=== PATIENT | male | born 1945 | race Caucasian/White ===

== ENCOUNTER → 2016-10-10 | Outpatient (CLI) | payer MEDICARE, BC ==
[~2016-10-10] MED LIST: ADVAIR 10028 PUFF/IN IN; ADVAIR 250/5028 PUFF IN; ASPIRIN 81MG TA81 MG PO; AVODART0.5 MG PO; CHANTIX1 M1 PO; DICLOFENAC SODI75 MG PO; DITROPAN XL10 MG PO; ETODOLAC400 MG; ETODOLAC400 MG PO; FAMOTIDINE40 MG PO; GLIPIZIDE 5MG TA5 MG PO; GLUMETZA500 MG PO; HUMULIN 70100 UNITS/ SC; INSULIN GL100 UNITS1 SC; KEFLEX500 M1 PO; LANTUS INS100 UNITS/ SC; LASIX 20MG. TAB20 MG PO; METFORMIN HCL1000 MG PO; METFORMIN500 MG PO; MICARDIS HCT 121 TAB PO; MICARDIS HCT 251 TAB PO; MULTI VITAMINS1 TA1 PO; MULTI VITAMINS1 TAB PO; NITROSTAT 0.4M0.4 MG SL; NOVOLOG MI100 UNITS/ SC; NYSTATIN SU60 ML/BOT PO; OXYBUTYNIN CHLO10 MG PO; OXYBUTYNIN10 MG PO; PEPCID40 MG PO; PLAVIX 75MG TAB75 MG PO; REGLAN10 M1 PO; SEPTRA DS 800 M1 TAB PO; SIMVASTATIN80 MG PO; SPIRIVA HA1 PUFF/INH IH; SPIRIVA HA1 PUFF/INH INH; SPIRONOLACTONE25 MG NG; TUDORZA PR400 MCG/Ac IH; UROXATRAL10 MG PO; VITAMIN B COMPL1 CAP PO; VYTORIN 10 MG-21 TAB PO; ZOCOR80 MG PO
== END ==
LOC: LAB 11:14
DX: R97.20 Elevated prostate specific antigen [PSA] (principal); Z12.5 Encounter for screening for malignant neoplasm of prostate
CPT/HCPCS: G0103

== ENCOUNTER 2017-01-02 18:55 | Emergency (ER) | payer MEDICARE, BC ==
[~2017-01-02] VITALS: Ht 172.7 cm; Wt 102.1 kg
[~2017-01-02 18:55] MED LIST changes: +LEVOTHYROXINE0.05 M3 NG; +METOCLOPRAMIDE10 M2 PO
--- OUTSIDE RECORDS SUMMARY | 2017-01-02 19:06 | External Medical Summary Rpt | CCD ---
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 THY E11.65 TYPE 2 DIABETES MELLITUS WITH HYPERGLYCEM IA E78.4 OTHER HYPERLIPIDE MOISES E78.5 HYPERLIPIDE MOISES, UNSPECIFIED I20.9 ANGINA PECTORIS, UNSPECIFIED I25.10 ATHSCL HEART DISEASE OF [place] CORONARY ARTERY W/O ANG PCTRS R10.9 UNSPECIFIED ABDOMINAL PAIN R92.8 OTH ABN AND INCONCLUSIV E FINDINGS ON DX IMAGING OF BREAST R97.2 ELEVATED PROSTATE SPECIFIC ANTIGEN [PSA] Z12.5 ENCOUNTER FOR SCREENING FOR MALIGNANT NEOPLASM OF PROSTATE Allergies, Adverse Reactions, Alerts Type Allergy to substance Drug Allergy Adverse Reaction to Substance Substance Reaction Severity INGREDIENT: NO KNOWN Unknown Unknown - NO KNOWN DRUG ALLERGY NO KNOWN ALLERGIES Unknown Unknown NO KNOWN DRUG Unknown Unknown ALLERGIES Medications Na ND Rx Da Fi Fi Am Da Di Ph RX Ph St me C No te ll ll ou ys ag ar # ys at rm s nt no ma ic us Or Da si cy ia de te s n re d IN 00 10 2 No VA 00 -1 NZ 63 2- Lo 1 84 20 ng 57 13 er GM 1 Ac AD ti D- ve VA NT AG E AL SO 00 10 2 No DI 40 -1 UM 97 2- Lo 10 20 ng CH 16 13 er LO 6 RI Ac DE ti ve 0. 9% SO LN TO 63 10 1 No BR 32 -1 AM 30 1- Lo YC 30 20 ng IN 60 13 er 2 40 Ac ti MG ve /M L AL SO 00 10 1 No DI 40 -1 UM 97 1- Lo 98 20 ng CH 43 13 er LO 7 RI Ac DE ti ve 0. 9% SO YAQUELIN TI ON PI 00 10 1 No PE 40 -1 RA 93 1- Lo CI 37 20 ng L- 90 13 er TA 4 ZO Ac BA ti CT ve 4. 5 GM AL ME 51 10 0 No TF 07 -1 OR 90 1- Lo TN 17 20 ng N 22 13 er HC 0 L Ac 50 ti 0 ve MG TA BL ET 63 10 3 No PI 73 -1 RI 90 1- Lo N 43 20 ng 81 40 13 er 1 MG Ac ti CH ve EW AB LE TA BL ET NI 00 10 3 No CO 06 -1 TI 75 1- Lo NE 12 20 ng 51 13 er 14 4 Ac MG ti /2 ve 4H R PA TC H LO 00 10 3 No VE 07 -1 NO 50 1- Lo X 62 20 ng 40 04 13 er 1 MG Ac /0 ti .4 ve ML SY RI NG E NM 51 10 3 No AV 07 -1 90 1- Lo TA 78 20 ng TI 22 13 er N 0 SO Ac DI ti UM ve 40 MG TA B AD 00 10 3 No VA 17 -1 IR 30 1- Lo 69 20 ng 10 50 13 er 0- 4 50 Ac ti DI ve SK US LE 50 10 0 No VA 45 -1 QU 80 0- Lo IN 16 20 ng -D 80 13 er 5W 1 Ac 50 ti 0 ve MG /1 00 ML BA G PI 00 10 1 No PE 40 -1 RA 93 0- Lo CI 37 20 ng L- 90 13 er TA 4 ZO Ac BA ti CT ve 4. 5 GM AL TO 63 10 1 No BR 32 -1 AM 30 0- Lo YC 30 20 ng IN 60 13 er 2 40 Ac ti MG ve /M L AL SO 00 10 0 No DI 40 -1 UM 97 0- Lo 98 20 ng CH 30 13 er LO 9 RI Ac DE ti ve 0. 9% SO YAQUELIN TI ON Sa 63 10 4 No li 80 -1 ne 70 0- Lo 10 20 ng Fl 07 13 er us 5 h Ac 10 ti ML ve Sy ri ng e Mo 00 10 0 No rp 40 -1 hi 91 0- Lo ne 76 20 ng 23 13 er 2M 0 G/ Ac Ml ti ve Sy ri ng e ON 00 10 0 No DA 64 -1 NS 16 0- Lo ET 08 20 ng RO 02 13 er N 5 HC Ac L ti 4 ve MG /2 ML AL MA 00 10 0 No PA 90 -1 P 41 0- Lo 32 98 20 ng 5 26 13 er MG 1 Ac TA ti BL ve ET FS 10 4 No -1 BL 0- Lo OO 20 ng D 13 er ALLEN GA Ac R ti ve HU 00 10 4 No MA 00 -1 LO 27 0- Lo G 51 20 ng 10 01 13 er 0 7 UN Ac IT ti S/ ve ML AL Mo 00 10 4 No rp 40 -1 hi 91 0- Lo ne 76 20 ng 23 13 er 2M 0 G/ Ac Ml ti ve Sy ri ng e SP 00 10 4 No IR 59 -1 IV 70 0- Lo A 07 20 ng 18 57 13 er 5 MC Ac G ti CP ve -H AN DI LATHAM LE R FA 51 10 4 No MO 07 -1 TI 90 0- Lo DI 96 20 ng NE 62 13 er 0 20 Ac ti MG ve TA BL ET PN 00 09 0 No EU 00 -1 MO 64 5- Lo VA 94 20 ng X 30 13 er 23 0 Ac ti AL ve FI 16 09 1 No NA 72 -1 ST 90 4- Lo ER 09 20 ng ID 01 13 er E 5 5 Ac MG ti ve TA BL ET TA 51 09 1 No MS 07 -1 UL 90 4- Lo OS 29 20 ng IN 42 13 er 0 HC Ac L ti 0. ve 4 MG CA PS UL E 63 09 2 No PI 73 -1 RI 90 3- Lo N 43 20 ng 81 40 13 er 1 MG Ac ti CH ve EW AB LE TA BL ET FA 51 09 2 No MO 07 -1 TI 90 3- Lo DI 96 20 ng NE 62 13 er 0 20 Ac ti MG ve TA BL ET AD 00 09 2 No VA 17 -1 IR 30 3- Lo 69 20 ng 10 50 13 er 0- 4 50 Ac ti DI ve SK US LO 00 09 2 No VE 07 -1 NO 50 3- Lo X 62 20 ng 40 04 13 er 1 MG Ac /0 ti .4 ve ML SY RI NG E NI 00 09 2 No CO 06 -1 TI 75 3- Lo NE 12 20 ng 61 13 er 21 4 Ac MG ti /2 ve 4H R PA TC H NM 51 09 2 No AV 07 -1 90 3- Lo TA 78 20 ng TI 22 13 er N 0 SO Ac DI ti UM ve 40 MG TA B SP 00 09 2 No IR 59 -1 IV 70 3- Lo A 07 20 ng 18 57 13 er 5 MC Ac G ti CP ve -H AN DI LATHAM LE R LE 50 09 0 No VA 45 -1 QU 80 2- Lo IN 16 20 ng -D 80 13 er 5W 1 Ac 50 ti 0 ve MG /1 00 ML BA G IN 00 09 0 No VA 00 -1 NZ 63 2- Lo 1 84 20 ng 57 13 er GM 1 Ac AD ti D- ve VA NT AG E AL SO 00 09 0 No DI 40 -1 UM 97 2- Lo 10 20 ng CH 16 13 er LO 6 RI Ac DE ti ve 0. 9% SO LN Sa 63 09 3 No li 80 -1 ne 70 2- Lo 10 20 ng Fl 07 13 er us 5 h Ac 10 ti ML ve Sy ri ng e IS 00 09 0 No OV 27 -1 UE 01 2- Lo -3 31 20 ng 70 65 13 er 2 76 Ac % ti IN ve FU S CAMMIE TT LE RA 63 09 0 No D- 80 -1 SA 70 2- Lo LI 10 20 ng NE 07 13 er 5A FL Ac US ti H ve 10 ML SY RI NG E ON 00 09 0 No DA 64 -1 NS 16 2- Lo ET 08 20 ng RO 02 13 er N 5 HC Ac L ti 4 ve MG /2 ML AL MA 00 09 0 No PA 90 -1 P 41 2- Lo 32 98 20 ng 5 26 13 er MG 1 Ac TA ti BL ve ET Mo 00 09 0 No rp 40 -1 hi 91 2- Lo ne 76 20 ng 23 13 er 2M 0 G/ Ac Ml ti ve Sy ri ng e FS 09 3 No -1 BL 2- Lo OO 20 ng D 13 er ALLEN GA Ac R ti ve HU 00 09 3 No MA 00 -1 LO 27 2- Lo G 51 20 ng 10 01 13 er 0 7 UN Ac IT ti S/ ve ML AL Vital Signs 11-21-2012 14:20 Name Value Interpretat Reference Comment ion Range Body 98.6 [degF] Temperature BP 88 mm[Hg] Diastolic BP Systolic 179 mm[Hg] Heart 63 /min Rate/Pulse Respiratory 20 /min Rate 10-14-2013 11:35 Name Value Interpretat Reference Comment ion Range O2% 96 % 11-17-2012 17:18 Name Value Interpretat Reference Comment ion Range Height 172.72 cm Weight 88.452 kg Measured 11-17-2012 13:22 Name Value Interpretat Reference Comment ion Range Body 99.4 [degF] Temperature BP 77 mm[Hg] Diastolic BP Systolic 140 mm[Hg] Heart 101 /min Rate/Pulse O2% 94 % Respiratory 20 /min Rate Weight 0 [oz_av] Measured 10-23-2012 11:33 Name Value Interpretat Reference Comment ion Range Body 98.4 [degF] Temperature BP 70 mm[Hg] Diastolic BP Systolic 161 mm[Hg] Heart 78 /min Rate/Pulse Respiratory 18 /min Rate 10-23-2012 08:00 Name Value Interpretat Reference Comment ion Range O2% 95 % 10-20-2012 20:30 Name Value Interpretat Reference Comment ion Range Height 172.72 cm Weight 91.173 kg Measured 10-20-2012 13:04 Name Value Interpretat Reference Comment ion Range Body 98.9 [degF] Temperature BP 68 mm[Hg] Diastolic BP Systolic 152 mm[Hg] Heart 99 /min Rate/Pulse O2% 97 % Respiratory 20 /min Rate Weight 0 [oz_av] Measured Results Labs Lab Lab Date Result Refere Interp Status Commen Order Detail nces retati t Range on Glucose dC Glucomtr-[facility] (11-21-2012 11:49) Glucose 169 70-110 complet BldC 013 mg/dl ed Glucomt 11:49 r-[facility] Glucose [facility] Glucomtr-[facility] (11-21-2012 06:37) Glucose 146 70-110 complet BldC 013 mg/dl ed Glucomt 06:37 r-[facility] BASIC METABOLIC PANEL (11-21-2012 06:25) Glucose 137 74-106 complet 013 mg/dL ed Bld-mCn 06:25 c BUN 8 mg/dL 7-18 complet Bld-mCn 013 ed c 06:25 Creat 1.0 0.8-1.3 complet SerPl-m 013 mg/dL ed Cnc 06:25 ESTIMAT 92 50-200 complet ED 013 ML/MIN ed CREATIN 06:25 INE CLEARAN CE GFR 10-14-2 75 Greater complet (ESTIMA 013 ML/MIN than ed ESTER) 06:25 60 Sodium 10-14-2 139 136-145 complet SerPl-s 013 mmoL/L ed Cnc 06:25 Potassi 10-14-2 3.9 3.5-5.1 complet um 013 mmoL/L ed SerPl-s 06:25 Cnc Chlorid -14-2 104 98-107 complet e 013 mmoL/L ed SerPl-s 06:25 Cnc CO2 -14-2 27 21.0-32 complet SerPl-s 013 mmoL/L .0 ed Cnc 06:25 Calcium 10-14-2 8.6 8.5-10. complet 013 mg/dL 1 ed SerPl-m 06:25 Cnc CBC with AUTO DIFF (11-21-2012 06:25) WBC # 10-14-2 6.4 4.8-10. complet Bld 013 K/MM3 8 ed Auto 06:25 RBC # 10-14-2 3.79 4.6-6.2 complet Bld 013 M/mm3 ed Auto 06:25 Hgb 10-14-2 11.3 14.1-18 complet Bld-mCn 013 g/dL .0 ed c 06:25 Hct Fr -14-2 35.2 % 42.0-52 complet Bld 013 .0 ed 06:25 MCV RBC 10-14-2 93.0 fl 82.2-97 complet 013 .8 ed 06:25 MCH RBC -14-2 29.7 pg 27-31.2 complet Qn 013 ed Auto 06:25 MEAN 10-14-2 32.0 31.8-35 complet CORPUSC 013 g/dl .4 ed ULAR 06:25 HGB CONC RDW RBC 10-14-2 15.5 % 11.5-17 complet Auto 013 .5 ed 06:25 Platele 10-14-2 247 142-424 complet t Bld 013 K/mm3 ed Ql 06:25 Manual MEAN 10-14-2 7.9 fl 7.4-10. complet PLATELE 013 4 ed T 06:25 VOLUME Granulo -14-2 65.1 % 37.0-80 complet cytes 013 .0 ed Fr Bld 06:25 Auto LYMPH % 10-14-2 25.2 % 10-50 complet 013 ed 06:25 Monocyt 10-14-2 5.9 % 1.7-9.3 complet es Fr 013 ed Bld 06:25 Auto Eosinop 10-14-2 3.4 % 0.1-12. complet hil Fr 013 0 ed Bld 06:25 Auto Basophi 10-14-2 0.4 % 0.1-2.0 complet ls Fr 013 ed Bld 06:25 Auto Granulo 10-14-2 4.2 1.3-8.0 complet cytes # 013 K/mm3 ed Bld 06:25 Auto Lymphoc 10-14-2 1.6 0.7-4.5 complet ytes Fr 013 K/mm3 ed Bld 06:25 Auto Monocyt 10-14-2 0.4 0.1-1.0 complet es # 013 K/mm3 ed Bld 06:25 Auto Eosinop 10-14-2 0.2 0.0-0.4 complet hil # 013 K/mm3 ed Bld 06:25 Auto Basophi 10-14-2 0.0 0-0.2 complet ls # 013 K/MM3 ed Bld 06:25 Auto Glucose dC Glucomtr-[facility] (11-20-2012 19:59) Glucose 11-20-2 228 70-110 complet BldC 013 mg/dl ed Glucomt 19:59 r-[facility] Glucose dC Glucomtr-[facility] (11-20-2012 16:36) Glucose 10-2 139 70-110 complet BldC 013 mg/dl ed Glucomt 16:36 r-[facility] Glucose BldC [facility]comtr-[facility] (11-20-2012 11:30) Glucose 10-2 152 70-110 complet BldC 013 mg/dl ed Glucomt 11:30 r-[facility] Glucose BldC Glucomtr-[facility] (11-20-2012 06:39) Glucose 10-2 165 70-110 complet BldC 013 mg/dl ed Glucomt 06:39 r-[facility] BASIC METABOLIC PANEL (11-20-2012 06:20) Glucose 11-20-2 169 74-106 complet 013 mg/dL ed Bld-mCn 06:20 c BUN 11-20-2 8 mg/dL 7-18 complet Bld-mCn 013 ed c 06:20 Creat 10-13-2 1.1 0.8-1.3 complet SerPl-m 013 mg/dL ed Cnc 06:20 ESTIMAT --2 84 50-200 complet ED 013 ML/MIN ed CREATIN 06:20 INE CLEARAN CE GFR 11-20-2 67 Greater complet (ESTIMA 013 ML/MIN than ed ESTER) 06:20 60 Sodium 11-20-2 139 136-145 complet SerPl-s 013 mmoL/L ed Cnc 06:20 Potassi 11-20-2 3.7 3.5-5.1 complet um 013 mmoL/L ed SerPl-s 06:20 Cnc Chlorid 11-20-2 104 98-107 complet e 013 mmoL/L ed SerPl-s 06:20 Cnc CO2 11-20-2 28 21.0-32 complet SerPl-s 013 mmoL/L .0 ed Cnc 06:20 Calcium -13-2 8.5 8.5-10. complet 013 mg/dL 1 ed SerPl-m 06:20 Cnc CBC with AUTO DIFF (11-20-2012 06:20) WBC # 10-13-2 6.6 4.8-10. complet Bld 013 K/MM3 8 ed Auto 06:20 RBC # 10-13-2 3.58 4.6-6.2 complet Bld 013 M/mm3 ed Auto 06:20 Hgb 10-13-2 10.8 14.1-18 complet Bld-mCn 013 g/dL .0 ed c 06:20 Hct Fr 10-2 33.1 % 42.0-52 complet Bld 013 .0 ed 06:20 MCV RBC 10-13-2 92.4 fl 82.2-97 complet 013 .8 ed 06:20 MCH RBC 10-13-2 30.1 pg 27-31.2 complet Qn 013 ed Auto 06:20 MEAN 10-13-2 32.6 31.8-35 complet CORPUSC 013 g/dl .4 ed ULAR 06:20 HGB CONC RDW RBC 10-13-2 15.6 % 11.5-17 complet Auto 013 .5 ed 06:20 Platele 10-13-2 208 142-424 complet t Bld 013 K/mm3 ed Ql 06:20 Manual MEAN 10-13-2 7.8 fl 7.4-10. complet PLATELE 013 4 ed T 06:20 VOLUME Granulo 10-13-2 68.8 % 37.0-80 complet cytes 013 .0 ed Fr Bld 06:20 Auto LYMPH % 10-13-2 23.0 % 10-50 complet 013 ed 06:20 Monocyt 10-13-2 6.0 % 1.7-9.3 complet es Fr 013 ed Bld 06:20 Auto Eosinop 10-13-2 1.6 % 0.1-12. complet hil Fr 013 0 ed Bld 06:20 Auto Basophi 10-13-2 0.6 % 0.1-2.0 complet ls Fr 013 ed Bld 06:20 Auto Granulo 10-13-2 4.5 1.3-8.0 complet cytes # 013 K/mm3 ed Bld 06:20 Auto Lymphoc 10-13-2 1.5 0.7-4.5 complet ytes Fr 013 K/mm3 ed Bld 06:20 Auto Monocyt 10-13-2 0.4 0.1-1.0 complet es # 013 K/mm3 ed Bld 06:20 Auto Eosinop 10-13-2 0.1 0.0-0.4 complet hil # 013 K/mm3 ed Bld 06:20 Auto Basophi 10-13-2 0.0 0-0.2 complet ls # 013 K/MM3 ed Bld 06:20 Auto Glucose BldC Glucomtr-[facility] (11-20-2012 03:06) Glucose 11-20-2 143 70-110 complet BldC 013 mg/dl ed Glucomt 03:06 r-nc Glucose BldC Glucomtr-nc (11-19-2012 21:56) Glucose 10-2 172 70-110 complet BldC 013 mg/dl ed Glucomt 21:56 r-nc Glucose BldC Glucomtr-[facility] (11-19-2012 17:09) Glucose 10-2 140 70-110 complet BldC 013 mg/dl ed Glucomt 17:09 r-[facility] Glucose BldC [facility]tr-[facility] (11-19-2012 11:45) Glucose 10-2 138 70-110 complet BldC 013 mg/dl ed Glucomt 11:45 r-[facility] Tobramycin Ran SerPl-mCnc (11-19-2012 10:00) Tobramy 1.2 complet maninder Ran 013 ug/mL ed 10:00 SerPl-m Cnc Glucose BldC Glucomtr-[facility] (11-19-2012 06:51) Glucose 120 70-110 complet BldC 013 mg/dl ed Glucomt 06:51 r-[facility] COMPREHENSIVE METABOLIC PANEL (11-19-2012 02:05) Glucose 148 74-106 complet 013 mg/dL ed Bld-mCn 02:05 c BUN 11 7-18 complet Bld-mCn 013 mg/dL ed c 02:05 Creat 1.4 0.8-1.3 complet SerPl-m 013 mg/dL ed Cnc 02:05 ESTIMAT 66 50-200 complet ED 013 ML/MIN ed CREATIN 02:05 INE CLEARAN CE GFR 51 Greater complet (ESTIMA 013 ML/MIN than ed ESTER) 02:05 60 Sodium 135 136-145 complet SerPl-s 013 mmoL/L ed Cnc 02:05 Potassi 4.0 3.5-5.1 complet um 013 mmoL/L ed SerPl-s 02:05 Cnc Chlorid 101 98-107 complet e 013 mmoL/L ed SerPl-s 02:05 Cnc CO2 26 21.0-32 complet SerPl-s 013 mmoL/L .0 ed Cnc 02:05 Calcium 8.1 8.5-10. complet 013 mg/dL 1 ed SerPl-m 02:05 Cnc Prot 6.7 6.4-8.2 complet SerPl-m 013 gm/dL ed Cnc 02:05 Albumin 2.3 3.4-5.0 complet 013 gm/dL ed SerPl-m 02:05 Cnc GLOBULI 4.4 1.3-3.2 complet N 013 gm/dL ed 02:05 ALB/GT 0.5 UNK 1.1-1.8 complet B RATIO 013 ed 02:05 Bilirub 10-12-2 0.4 0.2-1.0 complet 013 mg/dL ed SerPl-m 02:05 Cnc AST 11-19- 36 U/L 15-37 complet SerPl-c 013 ed Cnc 02:05 ALT 11-19- 52 U/L 30-65 complet SerPl-c 013 ed Cnc 02:05 ALP 120 U/L 50-136 complet SerPl-c 013 ed Cnc 02:05 Tobramycin Ran SerPl-mCnc (11-19-2012 02:05) Tobramy 11-19-2 5.5 complet maninder Ran 013 ug/mL ed 02:05 SerPl-m Cnc CBC with AUTO DIFF (11-19-2012 02:05) WBC # 10-12-2 10.6 4.8-10. complet Bld 013 K/MM3 8 ed Auto 02:05 RBC # 11-19-2 3.67 4.6-6.2 complet Bld 013 M/mm3 ed Auto 02:05 Hgb 11-19-2 11.1 14.1-18 complet Bld-mCn 013 g/dL .0 ed c 02:05 Hct Fr 33.6 % 42.0-52 complet Bld 013 .0 ed 02:05 MCV RBC 11-19- 91.6 fl 82.2-97 complet 013 .8 ed 02:05 MCH RBC 11-19-2 30.4 pg 27-31.2 complet Qn 013 ed Auto 02:05 MEAN 11-19- 33.2 31.8-35 complet CORPUSC 013 g/dl .4 ed ULAR 02:05 HGB CONC RDW RBC 11-19-2 15.7 % 11.5-17 complet Auto 013 .5 ed 02:05 Platele --2 204 142-424 complet t Bld 013 K/mm3 ed Ql 02:05 Manual MEAN 11-19-2 7.9 fl 7.4-10. complet PLATELE 013 4 ed T 02:05 VOLUME Granulo 11-19-2 83.0 % 37.0-80 complet cytes 013 .0 ed Fr Bld 02:05 Auto LYMPH % -12-2 11.6 % 10-50 complet 013 ed 02:05 Monocyt 10-2 4.8 % 1.7-9.3 complet es Fr 013 ed Bld 02:05 Auto Eosinop 10-12-2 0.2 % 0.1-12. complet hil Fr 013 0 ed Bld 02:05 Auto Basophi 10-12-2 0.3 % 0.1-2.0 complet ls Fr 013 ed Bld 02:05 Auto Granulo 10-12-2 8.8 1.3-8.0 complet cytes # 013 K/mm3 ed Bld 02:05 Auto Lymphoc 10-12-2 1.2 0.7-4.5 complet ytes Fr 013 K/mm3 ed Bld 02:05 Auto Monocyt 10-12-2 0.5 0.1-1.0 complet es # 013 K/mm3 ed Bld 02:05 Auto Eosinop 10-12-2 0.0 0.0-0.4 complet hil # 013 K/mm3 ed Bld 02:05 Auto Basophi 10-12-2 0.0 0-0.2 complet ls # 013 K/MM3 ed Bld 02:05 Auto Glucose BldC Glucomtr-mCnc (11-18-2012 20:10) Glucose 10-11-2 134 70-110 complet BldC 013 mg/dl ed Glucomt 20:10 r-nc Glucose BldC Glucomtr-mCnc (11-18-2012 16:52) Glucose 10-2 179 70-110 complet BldC 013 mg/dl ed Glucomt 16:52 r-nc Glucose BldC Glucomtr-mCnc (11-18-2012 11:27) Glucose 10-11-2 157 70-110 complet BldC 013 mg/dl ed Glucomt 11:27 r-nc BASIC METABOLIC PANEL (11-18-2012 06:45) Glucose -11-2 148 74-106 complet 013 mg/dL ed Bld-mCn 06:45 c BUN -11-2 13 7-18 complet Bld-mCn 013 mg/dL ed c 06:45 Creat -11-2 1.8 0.8-1.3 complet SerPl-m 013 mg/dL ed Cnc 06:45 ESTIMAT 11-18-2 51 50-200 complet ED 013 ML/MIN ed CREATIN 06:45 INE CLEARAN CE GFR 11-18-2 38 Greater complet (ESTIMA 013 ML/MIN than ed ESTER) 06:45 60 Sodium 10-11-2 135 136-145 complet SerPl-s 013 mmoL/L ed Cnc 06:45 Potassi 10-11-2 4.8 3.5-5.1 complet um 013 mmoL/L ed SerPl-s 06:45 Cnc Chlorid 10-11-2 100 98-107 complet e 013 mmoL/L ed SerPl-s 06:45 Cnc CO2 10-11-2 28 21.0-32 complet SerPl-s 013 mmoL/L .0 ed Cnc 06:45 Calcium 10-11-2 8.8 8.5-10. complet 013 mg/dL 1 ed SerPl-m 06:45 Cnc Tobramycin Ran SerPl-mCnc (11-18-2012 06:45) Tobramy 10-11-2 2.4 complet maninder Ran 013 ug/mL ed 06:45 SerPl-m Cnc CBC with AUTO DIFF (11-18-2012 06:45) WBC # 10-11-2 15.6 4.8-10. complet Bld 013 K/MM3 8 ed Auto 06:45 RBC # 10-11-2 4.14 4.6-6.2 complet Bld 013 M/mm3 ed Auto 06:45 Hgb 10-11-2 12.6 14.1-18 complet Bld-mCn 013 g/dL .0 ed c 06:45 Hct Fr 10-11-2 38.3 % 42.0-52 complet Bld 013 .0 ed 06:45 MCV RBC 10-11-2 92.6 fl 82.2-97 complet 013 .8 ed 06:45 MCH RBC 10-11-2 30.4 pg 27-31.2 complet Qn 013 ed Auto 06:45 MEAN 10-11-2 32.8 31.8-35 complet CORPUSC 013 g/dl .4 ed ULAR 06:45 HGB CONC RDW RBC 10-11-2 15.9 % 11.5-17 complet Auto 013 .5 ed 06:45 Platele 10-11-2 221 142-424 complet t Bld 013 K/mm3 ed Ql 06:45 Manual MEAN 10-11-2 7.8 fl 7.4-10. complet PLATELE 013 4 ed T 06:45 VOLUME Granulo 10-11-2 83.7 % 37.0-80 complet cytes 013 .0 ed Fr Bld 06:45 Auto LYMPH % 10-11-2 10.7 % 10-50 complet 013 ed 06:45 Monocyt 10-11-2 4.6 % 1.7-9.3 complet es Fr 013 ed Bld 06:45 Auto Eosinop 10-11-2 0.7 % 0.1-12. complet hil Fr 013 0 ed Bld 06:45 Auto Basophi 10-11-2 0.3 % 0.1-2.0 complet ls Fr 013 ed Bld 06:45 Auto Granulo 10-11-2 13.0 1.3-8.0 complet cytes # 013 K/mm3 ed Bld 06:45 Auto Lymphoc 10-11-2 1.7 0.7-4.5 complet ytes Fr 013 K/mm3 ed Bld 06:45 Auto Monocyt 10-11-2 0.7 0.1-1.0 complet es # 013 K/mm3 ed Bld 06:45 Auto Eosinop 10-11-2 0.1 0.0-0.4 complet hil # 013 K/mm3 ed Bld 06:45 Auto Basophi 10-11-2 0.1 0-0.2 complet ls # 013 K/MM3 ed Bld 06:45 Auto Glucose BldC [facility]tr[facility] (11-18-2012 06:21) Glucose 135 70-110 complet BldC 013 mg/dl ed [facility] Tob[facility] (11-17-2012 22:50) Tobramy 10-10-2 11.8 4.0-10. complet maninder 013 uG/mL 0 ed Peak 22:50 SerPl-[facility] Glucose BldC [facility]comtr-[facility] (11-17-2012 20:02) Glucose 144 70-110 complet BldC 013 mg/dl ed [facility]t [facility] Glucose BldC [facility] (11-17-2012 17:08) Glucose 11-17- 127 70-110 complet BldC 013 mg/dl ed [facility] 17:08 [facility] COMPREHENSIVE METABOLIC PANEL (11-17-2012 14:10) Glucose 11-17- 141 74-106 complet 013 mg/dL ed Bld-n 14:10 c BUN 10-2 10 7-18 complet Bld-mCn 013 mg/dL ed c 14:10 Creat 10-2 1.6 0.8-1.3 complet SerPl-m 013 mg/dL ed Cnc 14:10 ESTIMAT 10-2 59 50-200 complet ED 013 ML/MIN ed CREATIN 14:10 INE CLEARAN CE GFR 11-17-2 44 Greater complet (ESTIMA 013 ML/MIN than ed ESTER) 14:10 60 Sodium 10-2 130 136-145 complet SerPl-s 013 mmoL/L ed Cnc 14:10 Potassi 10- 4.7 3.5-5.1 complet um 013 mmoL/L ed SerPl-s 14:10 Cnc Chlorid 11-17- 98 98-107 complet e 013 mmoL/L ed SerPl-s 14:10 Cnc CO2 11-17- 28 21.0-32 complet SerPl-s 013 mmoL/L .0 ed Cnc 14:10 Calcium 11-17-2 8.8 8.5-10. complet 013 mg/dL 1 ed SerPl-m 14:10 Cnc Prot 10-2 8.2 6.4-8.2 complet SerPl-m 013 gm/dL ed Cnc 14:10 Albumin 10-2 3.2 3.4-5.0 complet 013 gm/dL ed SerPl-m 14:10 Cnc Globuli 11-17-2 5.0 1.3-3.2 complet n 013 gm/dL ed Ser-mCn 14:10 c Albumin 11-17-2 0.6 UNK 1.1-1.8 complet /Glob 013 ed SerPl-m 14:10 Rto Bilirub 10-2 0.5 0.2-1.0 complet 013 mg/dL ed SerPl-m 14:10 Cnc AST 10-2 14 U/L 15-37 complet SerPl-c 013 ed Cnc 14:10 ALT 10-2 30 U/L 30-65 complet SerPl-c 013 ed Cnc 14:10 ALP 11-17- 130 U/L 50-136 complet SerPl-c 013 ed Cnc 14:10 C-REACTIVE PROTEIN (11-17-2012 14:10) C-REACT 10-10-2 12.6 0.0-0.9 complet SAMANTHA 013 MG/DL ed PROTEIN 14:10 CBC with AUTO DIFF (11-17-2012 14:10) WBC # 10-10-2 15.1 4.8-10. complet Bld 013 K/MM3 8 ed Auto 14:10 RBC # 10-10-2 4.57 4.6-6.2 complet Bld 013 M/mm3 ed Auto 14:10 Hgb 10-10-2 13.9 14.1-18 complet Bld-mCn 013 g/dL .0 ed c 14:10 Hct Fr 10-10-2 41.9 % 42.0-52 complet Bld 013 .0 ed 14:10 MCV RBC 10-10-2 91.7 fl 82.2-97 complet 013 .8 ed 14:10 MCH RBC 10-10-2 30.4 pg 27-31.2 complet Qn 013 ed Auto 14:10 MEAN 10-10-2 33.2 31.8-35 complet CORPUSC 013 g/dl .4 ed ULAR 14:10 HGB CONC RDW RBC 10-10-2 15.8 % 11.5-17 complet Auto 013 .5 ed 14:10 Platele 10-10-2 264 142-424 complet t Bld 013 K/mm3 ed Ql 14:10 Manual MEAN 10-10-2 7.7 fl 7.4-10. complet PLATELE 013 4 ed T 14:10 VOLUME Granulo 10-10-2 84.7 % 37.0-80 complet cytes 013 .0 ed Fr Bld 14:10 Auto LYMPH % 10-10-2 9.8 % 10-50 complet 013 ed 14:10 Monocyt 10-10-2 4.8 % 1.7-9.3 complet es Fr 013 ed Bld 14:10 Auto Eosinop 10-10-2 0.3 % 0.1-12. complet hil Fr 013 0 ed Bld 14:10 Auto Basophi 10-10-2 0.4 % 0.1-2.0 complet ls Fr 013 ed Bld 14:10 Auto Granulo 10-10-2 12.8 1.3-8.0 complet cytes # 013 K/mm3 ed Bld 14:10 Auto Lymphoc 10-10-2 1.5 0.7-4.5 complet ytes Fr 013 K/mm3 ed Bld 14:10 Auto Monocyt 10-10-2 0.7 0.1-1.0 complet es # 013 K/mm3 ed Bld 14:10 Auto Eosinop 10-10-2 0.1 0.0-0.4 complet hil # 013 K/mm3 ed Bld 14:10 Auto Basophi 10-10-2 0.1 0-0.2 complet ls # 013 K/MM3 ed Bld 14:10 Auto URINALYSIS/COMPLETE (11-17-2012 13:50) URINE 10-10-2 YELLOW YELLOW complet COLOR 013 ed 13:50 URINE 10-10-2 CLOUDY CLEAR complet APPEARA 013 ed NCE 13:50 URINE 10-10-2 NEGATIV NEG complet GLUCOSE 013 E ed - 13:50 DIPSTIC K URINE 10-10-2 2+ NEG complet BILIRUB 013 ed IN - 13:50 DIPSTIC K URINE 10-10-2 NEGATIV NEG complet KETONE 013 E mg/dL ed 13:50 URINE 10-10-2 1.025 1.005-1 complet SPECIFI 013 UNK .030 ed C 13:50 GRAVITY URINE 10-10-2 3+ NEG complet BLOOD 013 ed 13:50 URINE 10-10-2 6.0 UNK 5.0-8.5 complet PH 013 ed 13:50 URINE 10-10-2 2+ NEG complet PROTEIN 013 mg/dL ed - 13:50 DIPSTIC K URINE 10-10-2 0.2 NEG complet UROBILI 013 E.U./dL ed NOGEN - 13:50 DIPSTIC K URINE 10-10-2 POSITIV NEG complet NITRATE 013 E ed - 13:50 DIPSTIC K URINE 10-10-2 2+ NEG complet LEUK 013 ed ESTERAS 13:50 E URINE 10-10-2 TNTC 0 complet RBC 013 rbc/hpf ed 13:50 URINE 10-10-2 TNTC O complet WBC 013 wbc/hpf ed 13:50 URINE 10-10-2 4+ O complet BACTERI 013 ed A 13:50 Glucose BldC [facility] (10-23-2012 06:24) Glucose 156 70-110 complet BldC 013 mg/dl ed Glucomt 06:24 r-mCnc Glucose BldC [facility] (10-22-2012 20:15) Glucose 205 70-110 complet BldC 013 mg/dl ed Glucomt 20:15 r-mCnc Glucose dC [facility] (10-22-2012 16:39) Glucose 193 70-110 complet BldC 013 mg/dl ed Glucomt 16:39 r-mCnc PROSTATE-SPECIFIC ANTIGEN F/U (10-22-2012 11:46) PROSTAT 51.2 0.0-4.0 complet E-SPECI 013 ng/mL ed FIC 11:46 ANTIGEN F/U Glucose dC [facility] (10-22-2012 11:41) Glucose 112 70-110 complet BldC 013 mg/dl ed Glucomt 11:41 r-mCnc Glucose [facility] (10-22-2012 06:26) Glucose 127 70-110 complet BldC 013 mg/dl ed Glucomt 06:26 r-mCnc Glucose [facility] (10-21-2012 20:36) Glucose 171 70-110 complet BldC 013 mg/dl ed Glucomt 20:36 r-mCnc Glucose dC [facility] (10-21-2012 16:57) Glucose 128 70-110 complet BldC 013 mg/dl ed Glucomt 16:57 r-mCnc Glucose [facility] (10-21-2012 11:50) Glucose 99 70-110 complet BldC 013 mg/dl ed Glucomt 11:50 r-mCnc Glucose dC [facility] (10-21-2012 06:32) Glucose 126 70-110 complet BldC 013 mg/dl ed Glucomt 06:32 r-mCnc Glucose dC [facility] (10-21-2012 01:43) Glucose 97 70-110 complet BldC 013 mg/dl ed Glucomt 01:43 r-mCnc Glucose dC [facility] (10-20-2012 22:56) Glucose 204 70-110 complet BldC 013 mg/dl ed Glucomt 22:56 r-mCnc STREP SCREEN (RAPID) (10-20-2012 15:45) STREP NEGATIV complet SCREEN 013 E ed (RAPID) 15:45 OCCULT BLOOD (10-20-2012 15:30) Hemocul NEGATIV NEG complet t sp1 013 E ed Stl Ql 15:30 COMPREHENSIVE METABOLIC PANEL (10-20-2012 14:20) Glucose 190 74-106 complet 013 mg/dL ed Bld-mCn 14:20 c BUN 8 mg/dL 7-18 complet Bld-mCn 013 ed c 14:20 Creat 1.2 0.8-1.3 complet SerPl-m 013 mg/dL ed Cnc 14:20 ESTIMAT 82 50-200 complet ED 013 ML/MIN ed CREATIN 14:20 INE CLEARAN CE GFR 61 Greater complet (ESTIMA 013 ML/MIN than ed ESTER) 14:20 60 Sodium 139 136-145 complet SerPl-s 013 mmoL/L ed Cnc 14:20 Potassi 3.6 3.5-5.1 complet um 013 mmoL/L ed SerPl-s 14:20 Cnc Chlorid 102 98-107 complet e 013 mmoL/L ed SerPl-s 14:20 Cnc CO2 30 21.0-32 complet SerPl-s 013 mmoL/L .0 ed Cnc 14:20 Calcium 9.3 8.5-10. complet 013 mg/dL 1 ed SerPl-m 14:20 Cnc Prot 8.2 6.4-8.2 complet SerPl-m 013 gm/dL ed Cnc 14:20 Albumin 3.4 3.4-5.0 complet 013 gm/dL ed SerPl-m 14:20 Cnc Globuli 4.8 1.3-3.2 complet n 013 gm/dL ed Ser-mCn 14:20 c Albumin 0.7 UNK 1.1-1.8 complet /Glob 013 ed SerPl-m 14:20 Rto Bilirub 0.8 0.2-1.0 complet 013 mg/dL ed SerPl-m 14:20 Cnc AST 22 U/L 15-37 complet SerPl-c 013 ed Cnc 14:20 ALT 46 U/L 30-65 complet SerPl-c 013 ed Cnc 14:20 ALP 114 U/L 50-136 complet SerPl-c 013 ed Cnc 14:20 Amylase SerPl-cCnc (10-20-2012 14:20) Amylase 24 U/L 25-115 complet 013 ed SerPl-c 14:20 Cnc LIPASE (10-20-2012 14:20) LIPASE 95 U/L 73-393 complet 013 ed 14:20 CBC with AUTO DIFF (10-20-2012 14:20) WBC # 18.4 4.8-10. complet Bld 013 K/MM3 8 ed Auto 14:20 RBC # 4.98 4.6-6.2 complet Bld 013 M/mm3 ed Auto 14:20 Hgb 15.6 14.1-18 complet Bld-mCn 013 g/dL .0 ed c 14:20 Hct Fr 47.0 % 42.0-52 complet Bld 013 .0 ed 14:20 MCV RBC 94.3 fl 82.2-97 complet 013 .8 ed 14:20 MCH RBC 31.2 pg 27-31.2 complet Qn 013 ed Auto 14:20 MEAN 33.1 31.8-35 complet CORPUSC 013 g/dl .4 ed ULAR 14:20 HGB CONC RDW RBC 15.4 % 11.5-17 complet Auto 013 .5 ed 14:20 Platele 212 142-424 complet t Bld 013 K/mm3 ed Ql 14:20 Manual MEAN 8.8 fl 7.4-10. complet PLATELE 013 4 ed T 14:20 VOLUME Granulo 90.9 % 37.0-80 complet cytes 013 .0 ed Fr Bld 14:20 Auto LYMPH % 09-12-2 5.7 % 10-50 complet 013 ed 14:20 Monocyt 09-12-2 2.1 % 1.7-9.3 complet es Fr 013 ed Bld 14:20 Auto Eosinop 09-12-2 1.0 % 0.1-12. complet hil Fr 013 0 ed Bld 14:20 Auto Basophi 09-12-2 0.2 % 0.1-2.0 complet ls Fr 013 ed Bld 14:20 Auto Granulo 09-12-2 16.7 1.3-8.0 complet cytes # 013 K/mm3 ed Bld 14:20 Auto Lymphoc 09-12-2 1.1 0.7-4.5 complet ytes Fr 013 K/mm3 ed Bld 14:20 Auto Monocyt 09-12-2 0.4 0.1-1.0 complet es # 013 K/mm3 ed Bld 14:20 Auto Eosinop 09-12-2 0.2 0.0-0.4 complet hil # 013 K/mm3 ed Bld 14:20 Auto Basophi 09-12-2 0.0 0-0.2 complet ls # 013 K/MM3 ed Bld 14:20 Auto URINALYSIS/COMPLETE (10-20-2012 13:26) URINE 09-12-2 BAKARI YELLOW complet COLOR 013 ed 13:26 URINE 09-12-2 CLEAR CLEAR complet APPEARA 013 ed NCE 13:26 URINE 09-12-2 3+ NEG complet GLUCOSE 013 ed - 13:26 DIPSTIC K URINE 09-12-2 3+ NEG complet BILIRUB 013 ed IN - 13:26 DIPSTIC K URINE -12-2 NEGATIV NEG complet KETONE 013 E mg/dL ed 13:26 URINE 09-12-2 1.025 1.005-1 complet SPECIFI 013 UNK .030 ed C 13:26 GRAVITY URINE -12-2 NEGATIV NEG complet BLOOD 013 E ed 13:26 URINE 09-12-2 6.0 UNK 5.0-8.5 complet PH 013 ed 13:26 URINE 09-12-2 TRACE NEG complet PROTEIN 013 mg/dL ed - 13:26 DIPSTIC K URINE 09-12-2 0.2 NEG complet UROBILI 013 E.U./dL ed NOGEN - 13:26 DIPSTIC K URINE -12-2 NEGATIV NEG complet NITRATE 013 E ed - 13:26 DIPSTIC K URINE 10-20-2 TRACE NEG complet LEUK 013 ed ESTERAS 13:26 E URINE 10-20-2 OCC 0 complet RBC 013 rbc/hpf ed 13:26 URINE 10-20-2 3-5 O complet WBC 013 wbc/hpf ed 13:26 URINE 10-20-2 3-5 OCC complet SQUAMOU 013 #/hpf ed S CELLS 13:26 URINE 10-20- TRACE O complet BACTERI 013 ed A 13:26 Procedures Procedure DOS Code Location Performer Comment VENOUS 38.93 Patrice LYONSTION NEC Encounters Encounter Start End Date Code Location Performer Type Date Inpatient RAJNI Nina ([place]) 3 13:39 3 14:20 [facility] Inpatient IMP Maurice [place] 3 13:33 3 11:45 [facility]
--- OUTSIDE RECORDS SUMMARY | 2017-01-02 19:06 | External Medical Summary Rpt | CCD ---
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 THY E11.65 TYPE 2 DIABETES MELLITUS WITH HYPERGLYCEM IA E78.4 OTHER HYPERLIPIDE MOISES E78.5 HYPERLIPIDE MOISES, UNSPECIFIED I20.9 ANGINA PECTORIS, UNSPECIFIED I25.10 ATHSCL HEART DISEASE OF [place] CORONARY ARTERY W/O ANG PCTRS R10.9 UNSPECIFIED [...] TF 07 -1 OR 90 1- Lo DE 17 20 ng N 22 13 er [...] .4 ve ML SY RI NG E FL 51 10 3 No AV 07 -1 [...] /2 ve 4H R PA TC H FL 51 09 2 No AV 07 -1 90 3- Lo TA 78 20 ng TI 22 13 er N 0 SO Ac DI ti UM ve 40 MG TA B SP 00 09 2 No IR 59 -1 IV 70 3- Lo A 07 20 ng 18 57 13 er 5 MC Ac G ti CP ve -H AN DI LATAHM LE R LE 50 09 0 No [...] nces retati t Range on Glucose dC [facility] (11-21-2012 11:49) Glucose 169 70-110 complet BldC 013 mg/dl ed Glucomt 11:49 r-[facility] Glucose [facility] (11-21-2012 06:37) Glucose 146 70-110 complet BldC 013 mg/dl ed Glucomt 06:37 r-[facility] BASIC METABOLIC PANEL (11-21-2012 06:25) Glucose 137 [...] K/MM3 ed Bld 06:25 Auto Glucose dC [facility] (11-20-2012 19:59) Glucose 11-20-2 228 70-110 complet BldC 013 mg/dl ed Glucomt 19:59 r-[facility] Glucose dC [facility] (11-20-2012 16:36) Glucose 10-2 139 70-110 complet BldC 013 mg/dl ed Glucomt 16:36 r-[facility] Glucose BldC [facility] (11-20-2012 11:30) Glucose 10-2 152 70-110 complet BldC 013 mg/dl ed Glucomt 11:30 r-[facility] Glucose BldC [facility] (11-20-2012 06:39) Glucose 10-2 165 70-110 complet BldC 013 mg/dl ed Glucomt 06:39 r-[facility] BASIC METABOLIC PANEL (11-20-2012 06:20) Glucose 11-20-2 [...] K/MM3 ed Bld 06:20 Auto Glucose BldC [facility] (11-20-2012 03:06) Glucose 11-20-2 143 70-110 complet BldC 013 mg/dl ed Glucomt 03:06 r-nc Glucose BldC [facility]-nc (11-19-2012 21:56) Glucose 10-2 172 70-110 complet BldC 013 mg/dl ed Glucomt 21:56 r-nc Glucose BldC [facility] (11-19-2012 17:09) Glucose 10-2 140 70-110 complet BldC 013 mg/dl ed Glucomt 17:09 r-[facility] Glucose BldC [facility] (11-19-2012 11:45) Glucose 10-2 138 70-110 complet BldC 013 mg/dl ed Glucomt 11:45 r-[facility] Tobramycin Ran SerPl-mCnc (11-19-2012 10:00) Tobramy 1.2 complet maninder Ran 013 ug/mL ed 10:00 SerPl-m Cnc Glucose BldC [facility] (11-19-2012 06:51) Glucose 120 70-110 complet BldC 013 mg/dl ed Glucomt 06:51 r-[facility] COMPREHENSIVE METABOLIC PANEL (11-19-2012 02:05) Glucose 148 [...] K/MM3 ed Bld 06:45 Auto Glucose BldC [facility] (11-18-2012 06:21) Glucose 135 70-110 complet BldC 013 mg/dl ed [facility]comt 06:21 [facility] Tobram[facility] (11-17-2012 22:50) Tobramy 10-10-2 11.8 4.0-10. complet maninder 013 uG/mL 0 ed Peak 22:50 SerPl-[facility] Glucose BldC [facility] (11-17-2012 20:02) Glucose 144 70-110 complet BldC 013 mg/dl ed Glucomt 20:02 [facility] Gl[facility]ldC [facility] (11-17-2012 17:08) Glucose 11-17- 127 70-110 complet BldC 013 mg/dl ed Glucomt 17:08 [facility] COMPREHENSIVE METABOLIC PANEL (11-17-2012 14:10) Glucose [...] BACTERI 013 ed A 13:50 Glucose BldC [facility] (10-23-2012 06:24) Glucose 156 70-110 complet BldC 013 mg/dl ed Glucomt 06:24 r-mCnc Glucose BldC [facility] (10-22-2012 20:15) Glucose 205 70-110 complet BldC 013 mg/dl ed Glucomt 20:15 r-mCnc Glucose dC [facility] (10-22-2012 16:39) Glucose 193 70-110 complet BldC 013 mg/dl ed Glucomt 16:39 r-mCnc PROSTATE-SPECIFIC ANTIGEN F/U (10-22-2012 11:46) PROSTAT 51.2 0.0-4.0 complet E-SPECI 013 ng/mL ed FIC 11:46 ANTIGEN F/U Glucose dC [facility] (10-22-2012 11:41) Glucose 112 70-110 complet BldC 013 mg/dl ed Glucomt 11:41 r-mCnc Glucose [facility] (10-22-2012 06:26) Glucose 127 70-110 complet BldC 013 mg/dl ed Glucomt 06:26 r-mCnc Glucose [facility] (10-21-2012 20:36) Glucose 171 70-110 complet BldC 013 mg/dl ed Glucomt 20:36 r-mCnc Glucose dC [facility] (10-21-2012 16:57) Glucose 128 70-110 complet BldC 013 mg/dl ed Glucomt 16:57 r-mCnc Glucose [facility] (10-21-2012 11:50) Glucose 99 70-110 complet BldC 013 mg/dl ed Glucomt 11:50 r-mCnc Glucose dC [facility] (10-21-2012 06:32) Glucose 126 70-110 complet BldC 013 mg/dl ed Glucomt 06:32 r-mCnc Glucose dC [facility] (10-21-2012 01:43) Glucose 97 70-110 complet BldC 013 mg/dl ed Glucomt 01:43 r-mCnc Glucose dC [facility] (10-20-2012 22:56) Glucose 204 70-110 complet BldC [...] RAJNI Nina ([place]) 3 13:39 3 14:20 [facility] Inpatient IMP Maurice Nina ([place]) 3 13:33 3 11:45 [facility]
--- OUTSIDE RECORDS SUMMARY | 2017-01-02 19:07 | External Medical Summary Rpt | CCD ---
Author Author [employer] Organization [employer] Address Unknown Phone Unavailable Purpose Continuity of Care Document - through 2016
--- OUTSIDE RECORDS SUMMARY | 2017-01-02 19:07 | External Medical Summary Rpt | CCD ---
Author Author , ERIKA Organization ERIKA Address Unknown Phone [email or web address] Immunization Name Date Rout CVX Reac Dose Comm Prov Is Faci e tion ent ider Refu lity Give sed n Infl 09-0 0.5 Hist PD20 No PD20 uenz 8-20 mL oric 255 255 a 17 al Quad Info rmat W/Pr ion es - Sour ce Unsp ecif ied PCV1 06-2 Intr 133 0.5 Hist WALM No WALM 3 5-20 amus mL oric ART5 ART5 16 cula al 91 91 r Info rmat ion - Sour ce Unsp ecif ied Td 03-0 Intr 9 999 Hist H149 No H149 (katie 5-19 amus oric lt), 97 cula al r Info adso rmat rbed ion - Sour ce Unsp ecif ied
--- OUTSIDE RECORDS SUMMARY | 2017-01-02 19:07 | External Medical Summary Rpt | CCD ---
Author Author , ERIKA Organization ERIKA Address Unknown Phone [email or web address] Immunization Name Date Rout CVX Reac Dose [...]
--- OUTSIDE RECORDS SUMMARY | 2017-01-02 19:07 | External Medical Summary Rpt ---
Author Author ERIKA Castellon, [employer]KA [employer] Organization [employer] Address Unknown Phone Unavailable Results Prostate specific Ag [Mass/volume] in Cerebral spinal fluid Observa Value Referen Units Interpr Notes Date tion ce etation Range Prostate 0.0 - 4.0 ng/mL High FREE PSA Sep 2 specific SUGGESTED 2017 Ag TO AID 11:15 AM [Mass/vol DIAGNOSIS ume] in Cerebral spinal fluid
[2017-01-02 19:31] VITALS: BP 119/45
[2017-01-02] MEDS ORDERED: PREDNISONE 20MG20 MG PO (19:31)
[2017-01-02] MEDS ORDERED: ZITHROMAX Z PA250 MG PO (19:31)
--- NOTE | 2017-01-02 19:31 | Urgent Treatment Center Report ---
History of Present Issue Date/Time Seen by Provider 01/02/17 1905 Visit Reason Pt arrived:Walked Presenting Problem:PT STATES COUGH, CINGESTION, AND RIGHT EAR PAIN X1 WEEK Location if Accident: Onset of symptoms date/time:/ or onset unknown for:MEDICAL HX UNKNOWN Have you (or family members/close friends) recently traveled outside the [place]? N If Yes, where/when: Have you had exposure to infectious disease within the past month? TB? Other? Specify: Here w/ due to cold symptoms that have moved into chest. Started w/ rhinorrhea, head congestion and right ear pressure 1.5 weeks ago but quickly moved into chest. Cough, chest congestion, occasional SOA and wheezing. + tobacco abuse. COPD. Uses advair and incruse daily. Has albuterol but reports he never needs it. Hasn't used it since being ill. Wears oxygen at night w/ CPAP. Denies fever, aches, chills. now has same symptoms that started and advanced in same manner. Has been taking sudafed without improvement. Nothing else. Hx DM and HTN. Reports both very well controlled and requesting steroids and antibiotics today. Source patient, family Exam Limitations no limitations ALLERGIES Coded Allergies: No Known Allergies (11/25/15) Home Medications Active Scripts Metoclopramide Hydrochloride (Reglan 10MG) 10 MG PO ACHS #30 TAB Prov: 05/30/13 Reported Medications Varenicline (Chantix) 1 MG PO BID #56 FLUTICASONE/SALMETEROL (Advair 250-50 Diskus) 1 PUFF IN QHS Vitamin B Complex 1 CAP PO DAILY Simvastatin (Zocor 80MG Tab) 80 MG PO QHS Etodolac 400 MG PO BID MULTIVITAMIN (One Daily Multivitamin) 1 TAB PO DAILY TELMISARTAN/HYDROCHLOROTHIAZID (Micardis Hct 80-25 MG Tablet) 1 TAB PO DAILY ASPIRIN (Aspirin) 81 MG PO DAILY FLUTICASONE/SALMETEROL (Advair 250-50 Diskus) 1 PUFF IN QID METFORMIN HCL (Metformin 1000MG) 1,000 MG PO BIDD Insulin Glargine (Lantus Insulin Vial) 30 UNITS SC QHS INSUL REG 30%ISOPHAN 70% HUMAN (Humulin 70-30 Vial) 20 UNITS SC BIDD Nitroglycerin (Nitrostat 0.4MG (1/150 Gr) Tabs #25) 0.4 MG SL [id number] PRN . CLOPIDOGREL BISULFATE (PLAVIX) 75 MG PO DAILY Furosemide (Lasix 20MG) 20 MG PO DAILY METOCLOPRAMIDE HCL (Metoclopramide 10MG) 40 MG PO LEVOTHYROXINE SOD (Levothyroxine 0.05MG) 0.05 MG NG DAILY History Medical History General CAD? No Angina: Yes AL: No Hypertension? Yes Hyperlipidemia? Yes CHF? No DVT? No PE? No COPD? Yes Asthma? No Anemia? No GERD? No Gastric ulcers? No GI Bleed? No Hernia? Yes Thyroid Problems? No Hypothyroidism? No CVA? No Seizures? No Diabetes? Yes Insulin Dependent: Yes Insulin Pump: No Home FSBS? No Renal Insuffiency? No UTI? Yes Stones? No BPH? No GB Disease: No Nephritic Syndrome? No Asplenia? No Hepatitis? No Sickle Cell Disease? No Arthritis? No Migraines? No Cataracts? Yes Glaucoma? No MRSA? No HIV? No TB? No Anxiety? No Depression? No Cancer? Yes Site: SKIN CANCER Immunization HX DT/Tetanus Unknown Flu Refused Pneumonia Received In Past Surgical Hx Previous Surgery?Y HERNIA X 2 FISTULA TURP SKIN CANCER REMOVED CARDIAC STENTS Family History Family HX Diabetes No CAD No Hypertension No Hyperlipidemia No Cancer Yes TB No Social History Smoking Hx Smoker: Never Smoker Tobacco: No Packs/day 1 1/2 - 2 Packs Alcohol Alcohol: No Review of Systems All Other Systems Reviewed and Negative Constitutional see HPI, denies malaise, denies weakness Eyes denies drainage ENT see HPI, nose discharge (clear). denies: ear discharge, throat pain. Respiratory see HPI Cardiovascular denies chest pain Gastrointestinal denies no symptoms reported Musculoskeletal denies joint pain Skin denies rash Psychiatric/Neurological headache (mild, occasionall) Physical Exam Vital Signs Vital Signs Date Time Temp Pulse Resp B/P Pulse O2 O2 Flow FiO2 Ox Delivery Rate 01/02 1931 97.9 80 18 119/45 96 01/03 1908 97.9 80 18 119/45 96 General Appearance no apparent distress, obese Eye Exam - bilateral eye normal exam Ear, Nose, Throat normal ENT inspection Neck non-tender, supple Respiratory Status Yes: trachea midline, chest symmetrical, non tender chest, productive cough ( swallowing it). No: respiratory distress, use of accessory muscles, pain on inspiration, pain on expiration. Lung Sounds anterior: lungs clear (cough worse w/ deep breathing). posterior: lungs clear ( cough worse w/ deep breathing). bilateral: lungs clear (cough worse w/ deep breathing). Cardiovascular regular rate/rhythm, no peripheral edema, no murmur Neurologic alert, oriented x 3 Mental status normal mood/affect Skin normal color, warm/dry Lymphatic no adenopathy Medical Decision Making LABS/Meds/Orders Pt receiving controlled substance in ED? No Departure Departure Time of Disposition 1927 Disposition DC Home or Self Care(routine) Clinical Impression Primary Impression: Acute bronchitis Qualifiers: Bronchitis organism: unspecified organism Qualified Code: J20.9 - Acute bronchitis, unspecified Secondary Impressions: Tobacco abuse Condition STABLE Referrals Amalia BENDER,Afshin (Family) IMMEDIATELY for new or worsening symptoms OR no noticeable improvement over the next 48-72 hours. 911 for difficulty breathing. Patient Instructions DI for Acute Bronchitis, How to Quit Tobacco Products Additional Instructions * STOP SMOKING!!!! * start antibiotic today. Be sure to complete entire prescription even if feeling better. * Monitor Temp. FU if fever develops. * humidifier/vaporizer/hot steamy shower * Mucinex during the day for your cough and cough suppressant only at night. Be sure to drink lots of water. Insurance may not cover a prescription of mucinex. Might be cheaper to get 400mg tablets and take 2 tablets morning, midday and evening all with lots of water. * Start steroid today only since you have taken them in the past and know your blood sugar does well with them. Monitor blood sugar and blood pressure closely. Be sure to follow up if they are elevated. Helps with inflammation therefore, cough and wheezing. Follow directions on package. Rvwd side effects. * Inhaler every 4-6 hours as needed like we discussed Discharge Counseling Counseled pt/family regarding diagnosis, medications/RX, home care, follow up needs Prescriptions Current Visit Scripts Azithromycin (Zithromycin (Z-GABINO) 250MG Tab) 250 MG PO DAILY #6 TAB TAKE TWO (2) TABLETS ON DAY 1, THEN ONE (1) TABLET DAY #2 THRU #5 Prednisone (Prednisone 20MG) 20 MG PO BID #10 TAB at 9645
== END 2017-01-02 19:33 | disposition home or self-care (01) ==
LOC: UTC 18:55
DX: J20.9 Acute bronchitis, unspecified (principal); F17.210 Nicotine dependence, cigarettes, uncomplicated; E11.9 Type 2 diabetes mellitus without complications; Z79.4 Long term (current) use of insulin; J44.9 Chronic obstructive pulmonary disease, unspecified; E78.5 Hyperlipidemia, unspecified; I10 Essential (primary) hypertension